=== PATIENT | male | born 1955 | race Hispanic/Latino ===

== ENCOUNTER 2022-08-30 14:16 | Outpatient (CLI) | payer OTHER | END 2022-08-30 14:17 | disposition home or self-care (01) | LOC: ULT 14:16 | PROVIDERS: ATTEND Internal Medicine | DX: I11.9 Hypertensive heart disease without heart failure (principal) | CPT/HCPCS: 93306 ==

== ENCOUNTER 2023-03-21 08:54 | Outpatient (CLI) | payer OTHER | END 2023-03-21 08:55 | disposition home or self-care (01) | LOC: CT 08:54 | PROVIDERS: ATTEND Internal Medicine | DX: M79.89 Other specified soft tissue disorders (principal) | CPT/HCPCS: 70487; 82565 ==

== ENCOUNTER 2023-05-20 07:51 | Outpatient (CLI) | payer OTHER ==
[2023-05-20] MEDS ORDERED: Iopamidol 370 76% 100 ML VIAL ONE (14:14)
== END 2023-05-20 07:52 | disposition home or self-care (01) ==
LOC: CT 07:51
PROVIDERS: ATTEND Internal Medicine
DX: M79.89 Other specified soft tissue disorders (principal); R22.1 Localized swelling, mass and lump, neck; M48.8X2 Other specified spondylopathies, cervical region; Q85.01 Neurofibromatosis, type 1
CPT/HCPCS: 72126; 82565; Q9967